=== PATIENT | male | born 1955 | race Caucasian/White ===

== ENCOUNTER → 2018-02-18 11:23 | Outpatient (CLI) | payer BC, SELFPAY | PROVIDERS: PCP Family Medicine; Visit Provider Family Medicine | DX: R07.9 Chest pain, unspecified (principal) | CPT/HCPCS: 93005 ==

== ENCOUNTER → 2018-02-25 08:21 | Outpatient (CLI) | payer BC, SELFPAY | PROVIDERS: PCP Family Medicine; Visit Provider Family Medicine | DX: R07.9 Chest pain, unspecified (principal) | CPT/HCPCS: 93017 ==

== ENCOUNTER → 2019-08-08 14:27 | Outpatient (POV) | payer BC, SELFPAY | PROVIDERS: Visit Provider Dermatology | DX: Z00.00 Encounter for general adult medical examination without abnormal findings (principal) ==

== ENCOUNTER → 2020-07-02 10:09 | Outpatient (POV) | payer BC, SELFPAY | PROVIDERS: PCP Family Medicine; Visit Provider Dermatology | DX: Z00.00 Encounter for general adult medical examination without abnormal findings (principal) ==

== ENCOUNTER 2020-10-08 12:38 | Emergency (ER) | payer BC, SELFPAY ==
[2020-10-08 12:39] VITALS: BP 131/77; PULSE 62; TEMP 37; O2SAT 98
[2020-10-08 12:46] VITALS: BP 131/77; PULSE 65; RESP 16; TEMP 37; O2SAT 98; BMI 29.7
--- NOTE | 2020-10-08 12:49 | XR_ITS ---
PROCEDURE: XR HAND RT MIN 3V CLINICAL INDICATION: crush inj to 5th finger COMPARISON: No exams were available for comparison FINDINGS: No fracture or dislocation. No lytic or blastic change. There is normal mineralization. The joint spaces are well-preserved except for mild narrowing and spurring of the 1st carpometacarpal joint. There is mild deformity of the distal ulna with what is likely an old unfused ulnar apophysis or unfused fracture of the ulnar styloid. All the metacarpals and phalanges appear intact. There is minor spurring of the DIP joint little finger. There is a radiolucency at the volar aspect of the DIP joint little finger which may be secondary to a laceration. There is no significant soft tissue swelling of the little finger and no foreign body is seen. Other findings:None. 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 Dictated by: Dr. Jose Garcia MD 10/08/2020 13:36 Dr. Jose Garcia MD in [place] 10/08/2020 13:36
--- NOTE | 2020-10-08 12:49 | HMH.EDGENADL ---
ED Disposition Clinical Impression: Finger laceration Qualifiers: Encounter type: initial encounter Finger: little finger Laterality: right Disposition: Home, Self-Care Condition on Discharge: Good Additional Instructions: You were seen on an emergency basis. It is very important that you follow up with your primary care provider and/or specialist as we discussed within 2 days. All labs and imaging were obtained and interpreted here to rule out life threatening emergencies, but your final results should be reviewed by your primary doctor at your follow up appointment. Please return to the emergency department if any of your symptoms worsen, or if they do not improve as we discussed. Suture removal in 1 week. Keep finger splint on until wound check Prescriptions: cephALEXin [Keflex 500mg Cap] 500 mg PO Q6H 7 Days #28 cap Transmission Status: Pending to [id number] Referrals: Reed Jimenez MD [Primary Care Provider] - - Critical Care Critical Care Time: No Attestation: On , the high probability of a clinically significant, sudden or life threatening deterioration of the following system(s) required my full and direct attention, intervention and personal management. The time I documented below is in addition to time spent performing reported procedures but includes the following listed in this critical care notation. Medical Decision Making - Medical Records Medical records reviewed: Yes: I reviewed the patient's medical records. - Jose Juan Inquiry Pt receiving controlled substance: No Vital Signs: 10/08/20 12:39 10/08/20 12:46 Temperature 98.6 F 98.6 F Temperature Source Oral Oral Pulse Rate [Right Radial] 62 65 Respiratory Rate 16 Blood Pressure [Left Arm] 131/77 Blood Pressure [Right Arm] 131/77 Blood Pressure Mean [Left Arm] 95 Blood Pressure Mean [Right Arm] 95 Blood Pressure Source [Left Arm] Automatic Cuff Blood Pressure Position [Left Arm] Sitting 02 Sat by Pulse Oximetry 98 98 Oxygen Delivery Method Room Air Room Air Orders (Tests/Meds): ED MEDICATIONS Discontinued Medications Generic Name Dose Route Start Last Admin Trade Name Freq PRN Reason Stop Dose Admin Tetanus/Reduced Diphtheria/Acell Pertussis 0.5 ml 10/08/20 12:49 10/08/20 14:10 Tet/Diphth/Pert-Adult 0.5ml Syringe IM 10/08/20 12:50 0.5 ml .ONCE ONE Administration Medical Decision Narrative: 65-year-old male presenting with right fifth finger crush injury/laceration. X-rays of the right hand were negative for fracture or dislocation. Tendon function intact. Distal neurovascularly intact. Full range of motion. No evidence of overlying infection. Minimal pain. No active bleeding. Laceration repaired by me. Will put on Keflex and have him follow-up with PCP. General Adult HPI - General Stated complaint: AO [id number] right pinky lacaration,home Time Seen by Provider: 10/08/20 12:49 - History of Present Illness HPI narrative: 65-year-old vgzda-[id number] male presenting with a crush injury to his right fifth finger that he sustained earlier today when he got his hand caught between a chain link fence, a metal chain [place]. He went to his primary care physician who sent him here for possible open fracture. He has mild localized pain to the right fifth finger with preserved range of motion. He is declining pain medication. No other injury sustained. - Related Data Previous Rx's Medication Instructions Recorded cephALEXin [Keflex 500mg Cap] 500 mg PO Q6H 7 Days #28 cap 10/08/20 Allergies Allergy/AdvReac Type Severity Reaction Status Date / Time NOVOCAINE Allergy Unknown FACE SWELLS Uncoded 11/16/17 14:24 [facility] History - Hepatitis A Screen Attestation statement:: This patient has been screened for Hepatitis A risk factors. I have reviewed the patient's past medical history: Yes ROS Obtained: Yes All systems reviewed & no additional comp
--- NOTE | 2020-10-08 13:18 | PC.NURSE ---
Radiology at [facility] for x-ray
--- NOTE | 2020-10-08 14:07 | PC.NURSE ---
Pt up pacing room asking what is taking so long. Explained to them that we had several pt's in here and that we just flew someone out. Pt has calmed down and verbalizes understanding.
--- NOTE | 2020-10-08 14:17 | PC.NURSE ---
at bedside suturing
[2020-10-08 15:01] VITALS: BP 138/77; PULSE 65; RESP 17; TEMP 36.8; O2SAT 99
== END 2020-10-08 15:03 | disposition home or self-care (01) ==
PROVIDERS: Emergency Provider Physician Assistant; PCP Family Medicine
DX: S61.216A Laceration without foreign body of right little finger without damage to nail, initial encounter (principal); W23.0XXA Caught, crushed, jammed, or pinched between moving objects, initial encounter; Y92.73 Farm field as the place of occurrence of the external cause; Z23 Encounter for immunization
CPT/HCPCS: 12002; 73130; 90715; 99283

== ENCOUNTER → 2020-10-16 10:44 | Outpatient (CLI) | payer BC, SELFPAY | PROVIDERS: Visit Provider Orthopaedic Surgery | DX: S61.219A Laceration without foreign body of unspecified finger without damage to nail, initial encounter (principal) | CPT/HCPCS: 87070; 87075; 87077; 87186; 87205 ==

== ENCOUNTER → 2020-10-29 12:17 | Outpatient (CLI) | payer BC, SELFPAY ==
--- NOTE | 2020-10-29 12:21 | XR_ITS ---
PROCEDURE: XR HAND RT MIN 3V CLINICAL INDICATION: rt small digit fracture/ crushing injury Follow-up fracture COMPARISON: CR XR HAND RT MIN 3V from 10/08/2020 FINDINGS: There is an overlying splint at the 5th digit. There is some minimal bony hypertrophy at the dorsal aspect of the DIP joint. No obvious fracture is apparent. Bony hypertrophy is present at the DIP joints of the 2nd and 3rd digit. There is some minimal soft tissue calcification lateral to the trapezium and there is an ununited ossification center at the ulnar styloid process. IMPRESSION: No obvious fracture. There is some bony hypertrophy along the dorsal aspect of the DIP joint of the 5th digit with other degenerative changes as described above. Dictated by: Gordy Mcgregor MD 10/29/2020 17:26 Gordy Mcgregor MD in [place] 10/29/2020 17:26
== END ==
PROVIDERS: PCP Family Medicine; Visit Provider Orthopaedic Surgery
DX: S67.196D Crushing injury of right little finger, subsequent encounter (principal)
CPT/HCPCS: 73130

== ENCOUNTER → 2020-11-05 12:34 | Outpatient (CLI) | payer BC, SELFPAY ==
--- NOTE | 2020-11-05 12:37 | XR_ITS ---
PROCEDURE: XR FINGER RT MIN 2V CLINICAL INDICATION: right small digit Follow-up fracture COMPARISON: CR XR HAND RT MIN 3V from 10/08/2020 CR XR HAND RT MIN 3V from 10/29/2020 FINDINGS: There is a finger splint in place. Degenerative changes are present at the PIP and DIP joint Other findings:No acute fracture apparent. IMPRESSION: As above, no acute Dictated by: Gordy Mcgregor MD 11/05/2020 17:09 Gordy Mcgregor MD in [place] 11/05/2020 17:09
== END ==
PROVIDERS: PCP Family Medicine; Visit Provider Orthopaedic Surgery
DX: S67.196D Crushing injury of right little finger, subsequent encounter (principal)
CPT/HCPCS: 73140

== ENCOUNTER 2020-11-12 10:00 | Outpatient (RCR) | payer BC, SELFPAY ==
--- NOTE | 2020-10-16 11:13 | HMH.PTOPWND ---
Rehab Outpt Wound Evaluation Rehab OP Wound Evaluation Start: 10/16/20 10:55 Freq: Status: Active Protocol: Document 10/16/20 10:55 NICHOLERAMIRO (Rec: 10/16/20 11:13 [id number]) Electronically Signed By Dwain Huang, CONNIE 10/16/20 10:55 Subjective/History History History This is the initial wound care evaluation for Paul Werner . Pt is a 65 y/o male referred to wound care for non -healing laceration on R 5th digit. Pt reports he was checking cows on 10/08/20 and his hand got caught between a gate and a cow smashing his finger and causing a laceration. Pt rpeorts he went to ER and the ER stitched up the finger. Pt reports he went to ortho MD today to have stitches removed and when they were the wound split open and was full of tissue . Pt reports MD debrided some tissue. Subjective Subjective Pt reports some tenderness in periwound area. Pt also reports ER did not clean it at all, just dumped saline in it and stitched it up Wound Eval Wound Right Distal Finger - 5th Digit Wound Type Laceration Is This a Chronic Wound Yes Wound Length (cm) 2.0 Wound Width (cm) 2.5 Wound Depth (cm) 0.8 Wound Bed Appearance Yellow,Slough,Necrotic Percentage of Slough (%) 100 Percentage of Eschar (Black) (%) 5 Percentage of Eschar (Yellow) (%) 95 Wound Margins Description Unattached Surrounding Tissue Appearance Elberta Drainage Description Sanguineous Drainage Amount Small Drainage Odor No Odor Dressing Status Soiled Wound Topical Solution/Irrigant Enzymatic Irrigant,Antibiotic Irrigant,Dakins Irrigant Primary Dressing Silver Dressing Comment tegederm AG mesh Wound Secondary Dressing Type Absorbant Pad Comment polymem pink finger dressing Wound Debridement Method Sharps,Forceps Wound Debridement Amount of Tissue Minimal Removed Wound Debridement Result Yellow Sloughing Remains Dressing Change Date
== END 2020-11-12 10:05 | disposition home or self-care (01) ==
LOC: PT 10:00
PROVIDERS: Visit Provider Orthopaedic Surgery
DX: S67.196D Crushing injury of right little finger, subsequent encounter
CPT/HCPCS: 97162; 97597

== ENCOUNTER → 2020-11-20 09:21 | Outpatient (CLI) | payer BC, SELFPAY ==
--- NOTE | 2020-11-20 09:24 | XR_ITS ---
PROCEDURE: XR FINGER RT MIN 2V CLINICAL INDICATION: right small digit fracture COMPARISON: CR XR HAND RT MIN 3V from 10/29/2020 CR XR FINGER RT MIN 2V from 11/05/2020 FINDINGS: Again noted is mild spurring of the DIP joint of the little finger. Is a very subtle radiolucent line suggesting a nondisplaced fracture ulnar corner of the base of the distal phalanx. The proximal middle phalanx appear intact. IMPRESSION: Stable nondisplaced corner fracture base of distal phalanx little finger along with osteoarthritic changes of the DIP joint Dictated by: Dr. Jose Garcia MD 11/20/2020 13:16 Dr. Jose Garcia MD in [place] 11/20/2020 13:16
== END ==
PROVIDERS: PCP Family Medicine; Visit Provider Orthopaedic Surgery
DX: S67.196D Crushing injury of right little finger, subsequent encounter (principal)
CPT/HCPCS: 73140

== ENCOUNTER → 2021-11-13 11:55 | Outpatient (CLI) | payer BC, SELFPAY | PROVIDERS: PCP Family Medicine; Visit Provider Nurse Practitioner | DX: Z20.822 Contact with and (suspected) exposure to COVID-19 (principal) | CPT/HCPCS: C9803; U0003; U0005 ==

== ENCOUNTER 2022-03-03 11:00 | Outpatient (RCR) | payer BC, SELFPAY | END 2022-03-03 11:05 | disposition home or self-care (01) | LOC: PT 11:00 | PROVIDERS: PCP Family Medicine; Visit Provider Internal Medicine Cardiovascular Disease | DX: M50.123 Cervical disc disorder at C6-C7 level with radiculopathy (principal) | CPT/HCPCS: 97010; 97012; 97014; 97035; 97110; 97163; 97164; G0283 ==

== ENCOUNTER → 2022-08-11 09:56 | Outpatient (POV) | payer BC, SELFPAY | PROVIDERS: Visit Provider Dermatology | DX: Z00.00 Encounter for general adult medical examination without abnormal findings (principal) ==

== ENCOUNTER 2022-11-14 09:14 | Emergency (ER) | payer MEDICARE, SELFPAY ==
[2022-11-14 09:39] VITALS: BP 145/85; PULSE 60; RESP 18; TEMP 36.6; O2SAT 98; BMI 35.9
--- NOTE | 2022-11-14 10:12 | EXP.UTC ---
Discharge Plan Disposition Patient Disposition: Home, Self-Care Condition: Good Prescriptions Prescriptions: No Action losartan 50 mg tablet 50 mg PO DAILY fenofibrate micronized 134 mg capsule 134 mg PO DAILY Referrals Follow up/Referrals: Reed Jimenez MD [Primary Care Provider] - See instructions Activity Restrictions/Add. Instructions Additional Instructions/Restrictions: call for results in a couple of hours. Clinical Impressions Clinical Impression: Cough with exposure to COVID-19 virus Instructions Patient Instructions: DI for COVID-19 (Suspected or Confirmed ), How to Care for Someone with COVID-19, Preventing the Spread of Coronavirus Discharge Instructions Discharge ED Provider: Carrie Still [facility] HPI General Stated complaint: Covid test, C+ on home test,Congestion Mode of Arrival: Ambulatory Source of Information: Patient Limitations: No Limitations Time Seen by Provider: 11/14/22 10:13 Description of Symptoms (Recalled from Triage Doc. by RN): pt comes in for covid test. pt had at home positive covid test. pts tested positive on at home test this morning as well. congestion, fever, chills, fatigue began wednesday HEENT Symptoms (Recalled from RN notes): Yes Resp Symptoms (Recalled from RN notes): Yes Skin Symptoms (Recalled from RN notes): No MS Symptoms (Recalled from RN notes): No Functional Status (Recalled from RN notes): n/a History of Present Illness Provider Complaint: Pt states that he and his had positive Covid test at home Related Data Home Medications Medication Instructions Recorded Confirmed fenofibrate micronized 134 mg 134 mg PO DAILY 10/16/20 11/20/20 capsule losartan 50 mg tablet 50 mg PO DAILY 10/16/20 11/20/20 Allergies Allergy/AdvReac Type Severity Reaction Status Date / Time NOVOCAINE Allergy Unknown FACE SWELLS Uncoded 11/20/20 10:28 Worker's Comp Is this a Worker's Comp case?: No [facility] Disclaimer: The information contained in this section may have been updated after the patient was seen, as this information can be updated by other users. Social History Smoking Status: Former smoker alcohol intake: never current occupational status: retired Travel in the last 8 weeks: None ROS Obtained: Yes All systems reviewed & no additional complaints except as documented Constitutional Constitutional: Reports fatigue, Reports fever(s), Reports headache(s) and Reports malaise Eyes Eyes: Reports system reviewed and no additional complaints, except as documented ENT Ears, Nose, Mouth, and Throat: Reports headache(s), Reports nasal congestion, Reports nasal discharge and Reports sore throat Cardiovascular Cardiovascular: Reports system reviewed and no additional complaints, except as documented Respiratory Respiratory: Reports cough and Reports non-productive cough Gastrointestinal Gastrointestingal: Reports system reviewed and no additional complaints, except as documented Genitourinary Male Genitourinary: Reports system reviewed and no additional complaints, except as documented Musculoskeletal Musculoskeletal: Reports system reviewed and no additional complaints, except as documented Integumentary/Breasts Skin/Breast: Reports system reviewed and no additional complaints, except as documented Neurologic Neurologic: Reports system reviewed and no additional complaints, except as documented and Reports headache(s) Endocrine Endocrine: Reports fatigue Hematologic/Lymphatic Henatologic/Lymphatic: Reports system reviewed and no additional complaints, except as documented Allergic/Immunologic Allergic/Immunologic: Reports system reviewed and no additional complaints, except as documented Physical Exam General General appearance: alert and in no apparent distress Head Head exam: atraumatic and normocephalic Eye Eye exam: Present normal appearance ENT ENT exam: Present mucous membranes moist Expanded ENT Exam External ear exam
[2022-11-14 10:21] VITALS: BP 145/85; PULSE 60; RESP 18; TEMP 36.6
== END 2022-11-14 10:28 | disposition home or self-care (01) ==
PROVIDERS: Emergency Provider Nurse Practitioner Family; PCP Family Medicine
DX: R05.9 Cough, unspecified (principal); Z20.822 Contact with and (suspected) exposure to COVID-19
CPT/HCPCS: 99212; C9803; G0463; U0003; U0005

== ENCOUNTER 2024-05-09 07:28 | Day surgery (SDC) | payer MEDICARE, SELFPAY ==
[2024-05-08 08:17] VITALS: BMI 31.3
--- NOTE | 2024-05-09 07:43 | P.PNANES_ITS ---
[facility] Disclaimer: The information contained in this section may have been updated after the patient was seen, as this information can be updated by other users. Medical History HTN (hypertension) Surgical History History of vocal cord polypectomy Family History Other Family history of diabetes mellitus Family history of heart disease Family history of hypertension Social History Smoking Status: Former smoker alcohol intake: never substance use type: denies use current occupational status: retired Travel in the last 8 weeks: None [facility] Anesthesia Checklist Patient Identification Patient Identification: Arm Band and Verbal (Name & ) Structural Data Admitted From: Home Planned Operative Procedure/s: Colonoscopy Consent for Planned Operative Procedure(s) Verified: Yes Verified Documents: Surgical Consent and History and Physical NPO Status Verified Time NPO: 00:00 Additional verifications Anesthesia Reactions: No Airway Assessment Mallampati Score:: Class II C-Spine Mobility Assessed: Yes TMJ Mobility Assessed: Yes Dentition: Good Dentition Neurological Assessment Level of Consciousness: Awake Hx Seizures: No Numbness or tingling in extremities: No Anesthesia Plan Anesthesia Risk discussed: Yes Anesthesia Plan: Verified ASA Class: II Anesthesia Type: MAC
[2024-05-09 08:01] VITALS: BP 150/74; PULSE 56; RESP 18; TEMP 36.2; O2SAT 98
--- NOTE | 2024-05-09 08:03 | HMH.SCOPE ---
Procedure: Date: 05/09/24 Patient Date of :: 1955 Procedure Performed:: Colonoscopy with polypectomy by means other than snare Indications:: Screening Performing Provider:: Osvaldo Chandra MD Referring Provider:: . Sedation:: Monitored anesthesia care Procedure:: After informed consent was obtained the patient was taken to the endoscopy suite. Sedation ensued after the patient was transferred to the left lateral decubitus position. Pulse, blood pressure, and oxygen saturation were monitored throughout the procedure. Digital rectal exam revealed no significant abnormality. The colonoscope was placed in position. The entire colon was evaluated. The colonoscope was carefully removed and the patient was transferred to recovery in stable condition. Please see findings and specimens below for detail. Findings:: Bowel preparation moderate Scattered diverticulosis Moderate lack of relaxation/spasticity Fairly severe sigmoid tortuosity Polyp at 7 cm Specimens:: Polyp at 7 cm (cold biopsy forceps) Recommendations:: Timing of repeat colonoscopy is pending pathology but likely be around 2-3 years secondary to moderate bowel preparation, tortuosity, and spasticity/lack of relaxation. Consider barium enema in near future secondary to fairly severe sigmoid tortuosity. Complications:: No immediate Estimated blood obtained (mL): 1 Colonoscopy Component Colonoscopy Component Was a colonoscopy performed during today's procedure?: Yes Recommended follow up colonoscopy of at least 10 years?: No If no, follow up colonoscopy recommended in ___ years?: (See above) Reason for not recommending >/= 10 yr follow-up interval?: (See above)
[2024-05-09] MEDS: LACTATED RINGERS 1000ML 1,000 ML 25 ML IV (08:05)
[2024-05-09 08:10] VITALS: O2SAT 98
[2024-05-09 08:42] VITALS: BP 113/67; PULSE 54; RESP 12; TEMP 36.5; O2SAT 95
[2024-05-09 08:52] VITALS: BP 104/69; PULSE 47; RESP 14; O2SAT 95
[2024-05-09 09:02] VITALS: BP 115/64; PULSE 49; RESP 16; O2SAT 98
[2024-05-09 09:12] VITALS: BP 108/73; PULSE 53; RESP 16; O2SAT 97
== END 2024-05-09 09:18 | disposition home or self-care (01) ==
PROVIDERS: PCP Family Medicine; Visit Provider Surgery
PROC: 0DJD8ZZ Inspection of Lower Intestinal Tract, Via Natural or Artificial Opening Endoscopic (ICD-10-PCS; CPT 45380; principal; 2024-05-09 08:30)
DX: Z12.11 Encounter for screening for malignant neoplasm of colon (principal); K57.30 Diverticulosis of large intestine without perforation or abscess without bleeding; K56.2 Volvulus; D12.8 Benign neoplasm of rectum
CPT/HCPCS: 45380; J7120